=== PATIENT | female | born 1985 | race Two or more races ===

== ENCOUNTER 2024-03-19 17:17 | Outpatient (RCR) | payer OTHER, SELFPAY | END 2024-03-19 23:59 | disposition home or self-care (01) | LOC: RPT 17:17 | PROVIDERS: ATTENDING PHYSICIAN Physician Assistant Surgical; FAMILY PHYSICIAN Nurse Practitioner | DX: S32.502D Unspecified fracture of left pubis, subsequent encounter for fracture with routine healing (principal); Z73.6 Limitation of activities due to disability | CPT/HCPCS: 97110; 97161 ==

== ENCOUNTER 2024-04-16 18:31 | Outpatient (RCR) | payer OTHER, SELFPAY | END 2024-04-22 08:01 | disposition home or self-care (01) | LOC: RPT 18:31 | PROVIDERS: ATTENDING PHYSICIAN Physician Assistant Surgical; FAMILY PHYSICIAN Nurse Practitioner | DX: S32.502D Unspecified fracture of left pubis, subsequent encounter for fracture with routine healing (principal); Z73.6 Limitation of activities due to disability | CPT/HCPCS: 97110; 97112 ==

== ENCOUNTER → 2024-05-08 06:51 | Outpatient (REF) | payer OTHER, SELFPAY | LOC: PNTC 06:51 | PROVIDERS: ATTENDING PHYSICIAN Obstetrics & Gynecology | DX: O09.529 Supervision of elderly multigravida, unspecified trimester (principal) | CPT/HCPCS: 36415; 76801; 76813 ==

== ENCOUNTER → 2024-07-03 07:04 | Outpatient (REF) | payer OTHER, SELFPAY | LOC: PNTC 07:04 | PROVIDERS: ATTENDING PHYSICIAN Obstetrics & Gynecology | DX: Z34.82 Encounter for supervision of other normal pregnancy, second trimester (principal); O09.529 Supervision of elderly multigravida, unspecified trimester | CPT/HCPCS: 76811 ==

== ENCOUNTER → 2024-08-21 06:58 | Outpatient (REF) | payer OTHER, SELFPAY | LOC: PNTC 06:58 | PROVIDERS: ATTENDING PHYSICIAN Obstetrics & Gynecology | DX: O09.529 Supervision of elderly multigravida, unspecified trimester (principal) | CPT/HCPCS: 76816 ==

== ENCOUNTER → 2024-09-30 07:00 | Outpatient (REF) | payer OTHER, SELFPAY | LOC: PNTC 07:00 | PROVIDERS: ATTENDING PHYSICIAN Obstetrics & Gynecology | DX: O09.529 Supervision of elderly multigravida, unspecified trimester (principal) | CPT/HCPCS: 76816 ==

== ENCOUNTER → 2024-10-07 07:03 | Outpatient (REF) | payer OTHER, SELFPAY | LOC: PNTC 07:03 | PROVIDERS: ATTENDING PHYSICIAN Obstetrics & Gynecology | DX: O09.529 Supervision of elderly multigravida, unspecified trimester (principal) | CPT/HCPCS: 59025; 76815 ==

== ENCOUNTER → 2024-10-14 07:31 | Outpatient (REF) | payer OTHER, SELFPAY | LOC: PNTC 07:31 | PROVIDERS: ATTENDING PHYSICIAN Obstetrics & Gynecology | DX: O09.529 Supervision of elderly multigravida, unspecified trimester (principal) | CPT/HCPCS: 59025; 76815 ==

== ENCOUNTER → 2024-10-21 07:04 | Outpatient (REF) | payer OTHER, SELFPAY | LOC: PNTC 07:04 | PROVIDERS: ATTENDING PHYSICIAN Obstetrics & Gynecology | DX: O09.529 Supervision of elderly multigravida, unspecified trimester (principal) | CPT/HCPCS: 59025; 76815; 93225; 93226 ==

== ENCOUNTER 2024-10-21 07:57 | Observation (INO) | payer OTHER, SELFPAY ==
[2024-10-21 08:12] VITALS: BP 116/83; BMI 28.9
--- NOTE | 2024-10-21 10:54 | CON.CAR ---
Addendum entered and electronically signed by Jonatan Jimenez MD 10/21/24 12:37:
I saw and examined the patient.
The STABLE MANAGER's note was reviewed and I agree with the note.
39-year-old woman who is 36 weeks who was having a routine evaluation by STAGE SET DESIGNER and when blood pressure was obtained the heart rate was recorded as being relatively low and pulse ox recorded in the 30s. Patient has been asymptomatic with
no lightheadedness or dizziness. She has been exercising regularly through her including walking on a treadmill with an incline and she has felt fine. No. Previous cardiac history no palpitations or heart racing. This is the patient's
second . She had no issues with her first . ECG shows sinus with PVCs
-Low pulse rate recording. Patient is noted to have PVCs. I suspect that some of the lower pulse recordings may be related to frequent PVCs and possible periods of ventricular bigeminy patient's pulse rate by her ECG is actually in the 80s.
-Isolated PVCs on ECG
Based on the above I would suggest the following
-Echocardiogram
-Labs including basic metabolic profile, magnesium and TSH with reflex T4
-If patient remains in the hospital then I would place her on telemetry for 24 hours. However, if the above tests are unremarkable then would give patient a 24-hour Holter monitor and she can be followed as outpatient
Original Note:
Consultation
Consultation Request
Date/Time Consultation Requested: 10/21/2024 10:30
Date/Time Consultation Performed: 10/21/2024 10:40
Requesting Provider: Dr. Shell
Performing Provider: ALEX Murrell for Dr. Jimenez
Reason for Consultation: PVCs
Medical History
-
Chief Complaint: Low HR
History of Present Illness:
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 She was getting her NST this morning when her heart rate on the blood pressure cuff was found to
be in the 30s. This prompted the electrical technician instructor to check her heart rate via pulse oximeter. It was relatively unchanged. Her heart rate was checked radially and was found to be irregular. She was admitted for observation. She has no symptoms of
palpitations, dizziness, nor shortness of breath. She is very active this and has no symptoms with exercise. EKG showed PVCs for which she was asymptomatic.
Past Medical History
Past Medical History: None
Past Surgical History: None
Social History
Tobacco: Non-Smoker
Alcohol: None
Drug: None
Personal:
Living: With Family
Employment: Not Employed
Family History
Family History: Reviewed & Not Pertinent (Denies early CAD and SCD.)
Allergies / Home Medications
Allergy/AdvReac Type Severity Reaction Status Date / Time
No Known Allergies Allergy Verified 10/21/24 08:10
�Medication �Instructions �Recorded �Confirmed �Type
Vitamin 1 tab PO DAILY 10/29/23 10/21/24 History
DHA 1 tab PO DAILY 10/21/24 10/21/24 History
iron 1 tab PO DAILY 10/21/24 10/21/24 History
Review of Systems
-
History Source: Patient
All other systems: Negative unless noted
Constitutional: No Symptoms
EENT: No Symptoms
Respiratory: No Symptoms
Cardiac: No Symptoms
Abdomen/GI: No Symptoms
: No Symptoms
Musculoskeletal: No Symptoms
Skin: No Symptoms
Neurological: No Symptoms
Endocrine: No Symptoms
Hematologic/Lymphatic: No Symptoms
Physical Exam
Vital Signs
Temp Pulse Resp BP
97.6 F 79 20 116/83
10/21/24 08:12 10/21/24 08:12 10/21/24 08:12 10/21/24 08:12
Physical Exam
General: Well Developed, Well Nourished, No Apparent Distress and Comfortable
HEENT: Normocephalic, Anicteric and Moist Mucous Membranes
Respiratory: Non Labored Respirations
Cardiac: S1/S2 and Irregular Rhythm
Breast: Deferred by me
GI: Non Tender, Normal Bowel Sounds and Other (Gravid)
Rectal: Deferred by Provider
Genito-urinary: No Costovertebral Tender
Musculoskeletal: No Clubbing and No Cyanosis
Skin: Warm and Dry
Neuro: AO x 3
Hematologic/Lymphatic: No Lymphadenopathy
Psych: Calm
Impression / Plan
-
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
PVCs
-PVCs seen on EKG, asymptomatic
-This would also explain a falsely low elevated heart rate on automatic blood pressure cuff and pulse oximetry
-Irregular to auscultation
-Echocardiogram
-CBC, BMP, magnesium, and TSH with reflex to T4
Data Reviewed
-
EKG: Report Reviewed by me (Sinus rhythm with frequent premature ventricular complexes, rate 87)
Labs: Other (Ordered)
Old Records: Reviewed
[2024-10-21 13:48] LABS: Hematocrit 34.5 % (37.0-47.0); Mean Corp Hgb Conc. 34.8 g/dL (33.0-37.0); Mean Corpuscular Hgb 32.2 pg (27.0-31.0); Mean Corpuscular Volume 92.5 fL (81.0-99.0); Red Blood Cell Count 3.73 10^6/uL (4.20-5.40); Red Cell Dist. Width 15.2 % (11.5-14.5); White Blood Cell Count 6.9 10^3/uL (4.8-10.8)
[2024-10-21 14:22] LABS: ALT (SGPT) 15 U/L (0-35); AST (SGOT) 26 U/L (14-36); Albumin 3.8 g/dl (3.5-5.0); Alkaline Phosphatase 69 U/L (38-126); Blood Urea Nitrogen 6 mg/dl (7-17); Calcium 8.8 mg/dl (8.4-10.2); Carbon Dioxide 21 mmol/L (22-30); Chloride 104 mmol/L (98-107); Estimated Creatinine Clearance 125 ml/min; Glucose 93 mg/dl (70-99); Magnesium 1.8 mg/dl (1.6-2.3); Potassium 3.8 mmol/L (3.5-5.1); Sodium 135 mmol/L (135-145); Total Bilirubin 0.3 mg/dl (0.2-1.3); Total Protein 6.6 g/dl (6.3-8.2); eGFR > 60.00
[2024-10-21 14:42] LABS: Platelet Count 160 10^3/uL (130-400)
[2024-10-21 14:50] LABS: TSH Reflex To Free T4 0.69 uIU/ml (0.47-4.68)
== END 2024-10-21 15:45 | disposition home or self-care (01) ==
LOC: LDRP 07:57
PROVIDERS: Nurse Practitioner Gerontology; ADMITTING PHYSICIAN Obstetrics & Gynecology; CONSULT PHYSICIAN Internal Medicine Cardiovascular Disease; FAMILY PHYSICIAN Nurse Practitioner; REFERRING PHYSICIAN Obstetrics & Gynecology
DX: I49.3 Ventricular premature depolarization (principal); O98.313 Other infections with a predominantly sexual mode of transmission complicating pregnancy, third trimester; A60.00 Herpesviral infection of urogenital system, unspecified; Z3A.36 36 weeks gestation of pregnancy; O99.013 Anemia complicating pregnancy, third trimester; D64.9 Anemia, unspecified; O09.523 Supervision of elderly multigravida, third trimester; O99.820 Streptococcus B carrier state complicating pregnancy; I08.1 Rheumatic disorders of both mitral and tricuspid valves; O99.413 Diseases of the circulatory system complicating pregnancy, third trimester
CPT/HCPCS: 36415; 80053; 83735; 84443; 85027; 86850; 86900; 86901; 93005; 93306; G0378

== ENCOUNTER → 2024-10-28 06:59 | Outpatient (REF) | payer OTHER, SELFPAY | LOC: PNTC 06:59 | PROVIDERS: ATTENDING PHYSICIAN Obstetrics & Gynecology | DX: O09.529 Supervision of elderly multigravida, unspecified trimester (principal) | CPT/HCPCS: 59025 ==

== ENCOUNTER → 2024-11-04 06:57 | Outpatient (REF) | payer OTHER, SELFPAY | LOC: PNTC 06:57 | PROVIDERS: ATTENDING PHYSICIAN Obstetrics & Gynecology | DX: O09.529 Supervision of elderly multigravida, unspecified trimester (principal) | CPT/HCPCS: 59025; 76815 ==

== ENCOUNTER → 2024-11-11 07:05 | Outpatient (REF) | payer OTHER, SELFPAY | LOC: PNTC 07:05 | PROVIDERS: ATTENDING PHYSICIAN Obstetrics & Gynecology | DX: O09.529 Supervision of elderly multigravida, unspecified trimester (principal) | CPT/HCPCS: 59025; 76818 ==

== ENCOUNTER 2024-11-11 21:21 | Inpatient (IN) | payer OTHER, SELFPAY ==
[2024-11-11 21:28] VITALS: BMI 29.5
[2024-11-11 21:53] LABS: % Basophils 0.3 % (0-2); % Immature Granulocytes 1.2 % (0-0.5); % Lymphocytes 16.3 % (20.5-51.1); % Neutrophils 74.2 % (42.2-75.2); Absolute Eosinophils 0.1 10^3/uL (0-0.7); Absolute Immature Granulocytes 0.1 10^3/uL (0-0.05); Absolute Lymphocytes 1.1 10^3/uL (1.2-3.4); Absolute Monocytes 0.5 10^3/uL (0.1-0.6); Hematocrit 35.2 % (37.0-47.0); Hemoglobin 12.4 g/dL (12.0-16.0); Mean Corp Hgb Conc. 35.2 g/dL (33.0-37.0); Mean Corpuscular Hgb 32.6 pg (27.0-31.0); Mean Corpuscular Volume 92.6 fL (81.0-99.0); Nucleated Red Blood Cells % 0 %; Platelet Count 149 10^3/uL (130-400); White Blood Cell Count 6.8 10^3/uL (4.8-10.8)
[2024-11-11] MEDS: CYTOTEC 50 MICROGRAM VAG (21:53)
[2024-11-11 22:38] VITALS: BP 115/85
[2024-11-11] MEDS: LR 1000 IV (23:40)
[2024-11-12] MEDS: LR 1000 IV ×2 (02:09→04:06)
[2024-11-12] MEDS: PENICILLIN 110 UNITS IV (02:40)
[2024-11-12] MEDS: PENICILLIN IV ×7 (02:51→07:05)
[2024-11-12] MEDS: PENICILLIN 55 UNITS IV ×2 (06:27→10:33)
[2024-11-12] MEDS: PITOCIN 30 UNITS/NSS 500 ML IV (11:42)
[2024-11-12] MEDS: XYLOCAINE-MPF 1% VIAL 30 ML INFIL (11:49)
[2024-11-12] MEDS: MOTRIN 600 MG PO ×2 (12:29→20:00)
[2024-11-13 06:03] LABS: Hematocrit 26.7 % (37.0-47.0); Hemoglobin 9.2 g/dL (12.0-16.0)
[2024-11-13] MEDS: SENOKOT-S 1 TABLET PO (08:30)
[2024-11-13] MEDS: PRENATAL PLUS 1 TABLET PO (08:30)
[2024-11-13] MEDS: FEOSOL 325 MG PO (08:30)
[2024-11-13] MEDS: MOTRIN 600 MG PO ×3 (09:28→21:56)
[2024-11-14] MEDS: SENOKOT-S 1 TABLET PO (09:20)
[2024-11-14] MEDS: FEOSOL 325 MG PO (09:20)
[2024-11-14] MEDS: MOTRIN 600 MG PO (09:20)
[2024-11-14] MEDS: PRENATAL PLUS PO (10:42)
[2024-11-14 13:20] LABS: Syphilis/T. pallidum Ab Reflex Negative (Negative)
== END 2024-11-14 12:29 | disposition home or self-care (01) | DRG 807 ==
LOC: LDRP 21:21
PROVIDERS: ADMITTING PHYSICIAN Obstetrics & Gynecology; FAMILY PHYSICIAN Obstetrics & Gynecology
PROC: 3E0P7VZ Introduction of Hormone into Female Reproductive, Via Natural or Artificial Opening (ICD-10-PCS; 2024-11-11)
PROC: 10907ZC Drainage of Amniotic Fluid, Therapeutic from Products of Conception, Via Natural or Artificial Opening (ICD-10-PCS; 2024-11-12)
PROC: 10E0XZZ Delivery of Products of Conception, External Approach (ICD-10-PCS; 2024-11-12)
PROC: 0KQM0ZZ Repair Perineum Muscle, Open Approach (ICD-10-PCS; 2024-11-12)
DX: O36.8130 Decreased fetal movements, third trimester, not applicable or unspecified (principal); Z37.0 Single live birth; O99.824 Streptococcus B carrier state complicating childbirth; O70.1 Second degree perineal laceration during delivery; Z3A.39 39 weeks gestation of pregnancy
CPT/HCPCS: 85014; 85018; 85025; 86780; 86850; 86900; 86901